=== PATIENT | male | born 1960 | race Caucasian/White ===

== ENCOUNTER → 2023-02-26 09:24 | Outpatient (BNVA) | payer OTHER, SELFPAY | PROVIDERS: Visit Provider Family Medicine Adult Medicine | DX: R10.9 Unspecified abdominal pain (principal); Z78.9 Other specified health status | CPT/HCPCS: 80053; 84443; 85025; G0103 ==

== ENCOUNTER 2023-04-23 06:01 | Outpatient (CLI) | payer OTHER, SELFPAY ==
--- NOTE | 2023-04-23 06:30 | US_ITS ---
WS: [id number] RIGHT UPPER QUADRANT ULTRASOUND HISTORY: gallbadder attack after eating COMPARISON: None available. Liver: 16.3 cm in length. Normal size liver and echogenicity. No bile duct dilatation or mass. Portal Vein: Normal hepatopetal flow with monophasic waveform. Gallbladder: Normally distended gallbladder. Several moderate-sized stones are present within the lum en of the gallbladder. Diameter of the largest stones approximately 2.0 cm. No pericholecystic fluid. No gallbladder wall thickening or edema. CBD: 0.3 cm Pancreas: Normal size and echogenicity. Right kidney: 11.2 cm in length. Normal size and echogenicity. No hydronephrosis or mass. Aorta and IVC: Unremarkable abdominal aorta and IVC. No ascites. IMPRESSION: 1. Cholelithiasis without evidence for acute cholecystitis. 2. No bile duct dilatation.
== END 2023-04-23 06:02 | disposition home or self-care (01) ==
LOC: RAD 06:03
PROVIDERS: PCP Family Medicine Adult Medicine; Visit Provider Family Medicine Adult Medicine
DX: K80.20 Calculus of gallbladder without cholecystitis without obstruction (principal); R10.9 Unspecified abdominal pain
CPT/HCPCS: 76705

== ENCOUNTER 2023-05-20 09:19 | Day surgery (SDC) | payer OTHER, SELFPAY ==
[2023-05-20 09:39] VITALS: BP 141/79; PULSE 74; RESP 18; TEMP 36.3; BMI 28.7
[2023-05-20] MEDS: sodium chloride 0.9% 1,000 ML 30 ML IV (09:52)
--- NOTE | 2023-05-20 10:41 | ANES.PREANE2 ---
Pre-Anesthetic Assessment Height/Weight: Height 1.78 m Weight 90.718 kg Temp Pulse Resp BP O2 Del Method 97.4 F 74 18 141/79 Room Air 05/20/23 09:39 05/20/23 09:39 05/20/23 09:39 05/20/23 09:39 05/20/23 09:39 Preop Diagnosis: GERD/ abdominal pain Operation Date: 05/20/23 10:30 Proposed Procedures p 06157 EGD(Not Applicable) [place] [address] Colonoscopy,G0121 screen colon A risk(Not Applicable) - Anthony Warner DO Familial anesthetic complications: None Was Beta Allegra taken within 24 hours: N/A Was Clonidine taken within 24 hours: N/A Last intake: Intake Last Liquid Date 05/19/23 Last Liquid Time 21:00 Last Solid Date 05/17/23 Last Solid Time 17:00 Social Alcohol (Social) and Tobacco (Marijuana, 1 gram every 6 days) Exam alert, oriented x 3, clear to auscultation bilaterally and regular rate & rhythm Airway Submandibular: within normal limits Cervical ROM: within normal limits Mallampati: Class II Dentition: full History/ROS No significant history except as noted and No significant complaints Pulmonary None reported CV/HEM Arrythmia (30 years ago, nothing since) Heart cath, no interventions Acute glomerular nephritits at age 4, nothing since Hepatic None reported GI Gastroesophageal Reflux Disease Metabolic None reported Musc/skel Lower Back Pain and Osteoarthritis/DJD Neuropsych None reported Anesthetic Plan ASA status: 2 Anesthesia: Anesthesia Evaluation, General and MAC Risk of > 500 ml blood loss (7ml/kg in children): No Medications/Allergies Home Medications Medication Instructions Recorded Confirmed Last Taken Type pantoprazole 40 mg tablet,delayed 40 mg PO BID 6 weeks #84 tabs 04/22/23 05/18/23 05/19/23 08:00 Rx release (Protonix) Allergies Allergy/AdvReac Type Severity Reaction Status Date / Time No Known Allergies Allergy Unverified 05/19/23 08:41 Current Medications Generic Name Dose Route Start Last Admin Trade Name Freq PRN Reason Stop Dose Admin Sodium Chloride 1,000 mls @ 30 mls/hr 05/20/23 09:30 05/20/23 09:52 Sodium Chloride 0.9% IV 05/21/23 09:29 30 mls/hr .Q24H JENNIFER Administration PFSH Anesthesia Medical History Abdominal pain Diverticulosis Gallbladder attack Hemorrhoids without complication High prostate specific antigen (PSA) Participant in health and wellness plan Surgical History H/O colonoscopy History of tonsillectomy Family History Father Diabetes Mother Low thyroid stimulating hormone (TSH) level Social History Smoking and tobacco/nicotine status: never used tobacco/nicotine Passive smoking exposure: No Second hand smoke exposure: No Alcohol intake: current Alcohol intake frequency: few times a month Alcohol type: beer and hard liquor Substance/Drug Use: current Substance/Drug use frequency: few times a month Data Anesthesia Cardiac Studies: No Data to Display
--- NOTE | 2023-05-20 13:27 | W.PM.OPSUD ---
Surgery/Procedure H&P Update DATE OF PROCEDURE: May 20, 2023 DATE H&P PERFORMED: 04/22/23 H&P UPDATE INFORMATION: I have reviewed H&P completed within last 30 days, I have examined patient prior to procedure and No changes to prior documentation PREOP DIAGNOSIS: GERD/ abdominal pain PLANNED PROCEDURE: Operation Date: 05/20/23 10:30 Proposed Procedures p 58048 EGD(Not Applicable) - [place] s [address] Colonoscopy,G0121 screen colon A risk(Not Applicable) - Anthony Warner DO
[2023-05-20 14:00] VITALS: BP 100/79; PULSE 80; RESP 18; TEMP 36.1; O2SAT 98
[2023-05-20 14:15] VITALS: BP 128/94; PULSE 78; RESP 18; O2SAT 96
[2023-05-20 14:30] VITALS: BP 104/67; PULSE 62; RESP 18; O2SAT 93
--- NOTE | 2023-05-20 17:49 | ANE.PACU2 ---
Inpatient post-anesthesia follow up: Airway intact: Yes Vital signs: Temperature 97.0 F Pulse Rate 62 Respiratory Rate 18 Blood Pressure 104/67 Pulse Oximetry 93 Oxygen Delivery Me thod Room Air Oxygen Flow Rate Fraction of Inspir ed Oxygen Hydration adequate: Yes Nausea and vomiting: No Pain level: 2 Mental status: Baseline
== END 2023-05-20 14:40 | disposition home or self-care (01) ==
PROVIDERS: PCP Family Medicine Adult Medicine; Visit Provider Surgery
PROC: 0DJ08ZZ Inspection of Upper Intestinal Tract, Via Natural or Artificial Opening Endoscopic (ICD-10-PCS; CPT 43235; principal; 2023-05-20 10:30)
PROC: 0DJD8ZZ Inspection of Lower Intestinal Tract, Via Natural or Artificial Opening Endoscopic (ICD-10-PCS; CPT 45378; 2023-05-20 10:30)
DX: K59.00 Constipation, unspecified (principal); R10.9 Unspecified abdominal pain; K21.9 Gastro-esophageal reflux disease without esophagitis; K29.50 Unspecified chronic gastritis without bleeding; K57.30 Diverticulosis of large intestine without perforation or abscess without bleeding; K64.8 Other hemorrhoids; K22.2 Esophageal obstruction
CPT/HCPCS: 43239; 45378; 76937; 88305; 88342; J2704; J7030

== ENCOUNTER → 2023-10-29 08:32 | Outpatient (BNVA) | payer OTHER, SELFPAY | PROVIDERS: PCP Family Medicine Adult Medicine; Visit Provider Family Medicine Adult Medicine | DX: R63.5 Abnormal weight gain | CPT/HCPCS: 80053; 84443; G0103 ==

== ENCOUNTER → 2024-05-03 08:49 | Outpatient (BNVA) | payer OTHER, SELFPAY | PROVIDERS: PCP Family Medicine Adult Medicine; Visit Provider Urology | DX: C67.9 Malignant neoplasm of bladder, unspecified (principal); R97.20 Elevated prostate specific antigen [PSA] | CPT/HCPCS: 84153; 84403 ==

== ENCOUNTER → 2024-08-01 13:47 | Outpatient (BNVA) | payer OTHER, SELFPAY | PROVIDERS: PCP Family Medicine Adult Medicine; Visit Provider Clinical Nurse Specialist Adult Health | DX: E66.01 Morbid (severe) obesity due to excess calories (principal); C67.9 Malignant neoplasm of bladder, unspecified; G47.00 Insomnia, unspecified; F41.1 Generalized anxiety disorder | CPT/HCPCS: 80053; 82040; 82670; 84153; 84270; 84403; 84443; 85025 ==

== ENCOUNTER → 2024-08-29 14:53 | Outpatient (BNVA) | payer OTHER, SELFPAY | PROVIDERS: PCP Clinical Nurse Specialist Adult Health; Visit Provider Urology | DX: C67.9 Malignant neoplasm of bladder, unspecified (principal) | CPT/HCPCS: 84153; 84403 ==

== ENCOUNTER 2025-01-13 07:36 | Emergency (ER) | payer OTHER, SELFPAY ==
--- OUTSIDE RECORDS SUMMARY | 2025-01-13 07:42 | XMS_ITS | Data Portability ---
Author Organization [facility] Mayo Hummel [facility], [facility] Address [address] [place] [address] Assessment No assessment recorded. Plan of Treatment Reminders Order Date Submit Date Provider Last Modified By Organization Details Last Modified Time Details Appointments None recorded. Lab None recorded. Referral None recorded. Procedures None recorded. Surgeries None recorded. Imaging electrocard iogram 2020 [facility], [address] [place] [address], [id number], 14:28:48 Medication Orders [facility]adine [facility] mg tablet [facility] [place], [address], 13:53:22 alprazolam 0.5 mg tablet [facility] [place], [address], 13:48:13 Patient TargetsNo targets recorded. Patient Instructions Encounter Date Encounter Id Patient Instructions Last Modified By Organization Details Last Modified Time 06/03/2021 [id number] EKG was normal Discussed findings at length with patient He requests something short term for anxiety and he has been very distressed by the recent pain in his chest Informed pt the pain is musculoskelatal and does not sound cardiac in nature. Instructed him to return next month for routine lab and follow up [email or web address] Not available 06/03/2021 13:52:45 Reason for Referral None Reported. Results Created Date Observation Date Name Description Value Unit Range Abnormal Flag Note LastModifiedBy Organization Detail LastModifiedTime 06/03/20 21 elect heather diogr am No observ ation record ed. [email or web address] [facility] [address] [place] [address], [phone], 06/03/2021 13:50:41 Result Notes None recorded. Problems Name Problem SNOMED Code Status Onset Date Resolution Date Notes Provider Name and Address Organization Details Recorded Time Heart murmur 56171904 [facility] 11:10:53 Problem Notes None recorded. Procedures Surgical History Date Name Laterality Status Provider Name and Address Organization Details Recorded Time Tonsillectomy completed [facility] 06/03/2021 11:13:40 Imaging Results None recorded. Procedure Notes None recorded. Medical Equipment None Reported. Allergies No known drug allergies Medications Name Sig Start Date Stop Date Status Note LastModified by Organization Details LastModified Time alprazolam 0.5 mg tablet Take 1 tablet 3 times a day by oral route as needed. active Not Available Not Available Not Avai lable loratadine 10 mg tablet Take 1 tablet every day by oral route. active Not Available Not Available Not Avai lable Vitals Date Recorded Body weight Heart rate Respiratory rate Body temperature Body mass index (BMI) Body height Oxygen saturation Oxygen saturation in Arterial blood by Pulse oximetry Systolic And Diastolic Provider Name and Address Organization Details Last Updated DateTime 1 76578.4 g 84 /min 18 /min 98 [degF] 30.1 kg/m2 177.8 cm 98 % 98 % 138/80 mm[Hg] [facility] 11:07:28 Social History Question Answer Notes LastModified by Organizat ion Details LastModified Time Tobacco Smoking Status Never [facility]oker [facility] 06/03/2021 11:13:29 What Is Your Level Of Caffeine Consumption? Occasional [email or web address] Information not available 06/03/2021 Which Illicit Or Recreational Drugs Have You Used? Marijuana [email or web address] Information not available 06/03/2021 Sex: Unknown Functional Status Question Answer Note LastModified by Organizat ion Details LastModified Time Do you use any illicit or recreational drugs? Yes [email or web address] Information not available 06/03/2021 What is your level of alcohol consumption? Occasional [email or web address] Information not available 06/03/2021 Mental Status None recorded. Family History Relationship Description Onset Age of this Age Resolved Age Notes LastModified by Organization Details LastModified Time Brother Heart disease Not available 2020 11:11:12 Mother Heart disease [email or web address] Not available 2020 11:11:36 Father Diabetes mellitus [email or web address] Not available 2020 11:11:55 Medical History No medical history recorded. Past Encounters Encounter ID Performer Location Encounter Start Date Encounter Closed Date Diagnosis/Indication Diagnosis SNOMED-CT Code Diagnosis ICD10 Code Diagnosis Note [id number] Radha Funez APRN [address] [address] 06/03/2021 10:24:54 06/04/2021 10:08:40 Anxiety 04911517 F41.9 Chest wall pain 18099518 6 R07.89 Muscle pain 87024203 M79 .10 Allergic rhinitis 330939 04 J30.9 Health Concerns Section Related Observation LastModified by Organization Detai ls LastModified Time None Recorded Concern Status LastModified by Organization Details LastModified Time None Recorded Advance Directives Directive None Recorded Payers Insurance Date Sequence Insurance Name Policy Number Policy Mendoza Covered Member ID Mendoza Member ID Guarantor Name 06/03/2021 SLIDING FEE SCHEDULE - DISCOUNT Alexis Arboleda 06/03/2021 1 [employer] [place] - ESSENTIAL [employer]ARE 2 (PPO) Alexis Arboleda [id number] Alexis Arboleda Notes Date Note Type Note Provider Name and Address Organization Details Recorded Time 06/03/2021 text/html Pt presents as a new pt to the clinic He moved here from [place] 2 years ago but has not seen any physicians as he has not needed anything acute. He states he has always been very healthy His last lab work up was 2 years ago in [place]. He states most recently he has been having some discomfort in his chest He has been out chopping wood and doing yard work and noticed the discomfort after hagan He is very anxious that something is wrong with his heart. He has no cardiac history He states the pain is worse with movement and deep breath. He has also had a cough and congestion since working in the yard. He has not taken anything over the counter [address] [facility] 06/03/2021 13:53:27
--- OUTSIDE RECORDS SUMMARY | 2025-01-13 07:43 | XMS_ITS | Patient Health Record ---
Author Organization [facility] Address [address] [place] [address] Care Team Providers Care Paper Cleaner Name Role Phone Ibrahima Reyes MD Primary Care Provider Unavailab SHANA Pereyra Unavailable [phone] Dante Ahumada Unavailable [phone] Allergies No Known Allergies Results Component Value Reference Range Notes Urinalysis, Routine Reviewed date:05/10/2024 10:51:46 AM Interpretation: Performing Lab: Notes/Report: Urine-Color yellow Appearance clear Glucose - Bilirubin - Ketones - Specific [place] 1.015 Occult Blood - pH 6.0 Urine Protein - Urobilinogen,Semi-Qn - Nitrite, Urine - WBC Esterase - Urinalysis Gross Exam - Reason For Referral No Information Medications Medication SIG (Take, Route, Fr equency, Duration) Notes Start Date End Date Status Anastrozole 1 MG 1 tablet Orally Once a day for 30 days 07/29/2024 Active Orgovyx 120 MG 1 tablet Orally Once a day Active Omeprazole 10 MG 1 capsule 30 minutes before morning meal Orally Once a day Active Advil 200 MG 1 tablet with food o r milk as needed Orally Three times a day PRN Active Orgovyx 120 MG 1 tablet Orally Once a day for 30 days 07/25/2024 07/20/2025 Active Orgovyx 120 MG 1 tablet Orally Once a day for 30 days 10/18/2024 10/13/2025 Active Wellbutrin Not-Takin g MiraLax 17 GM 1 packet mixed with 8 ounces of fluid Orally Once a day Not-T aking Social History Tobacco Use: Social History Observation Description Date Details (start date - stop date) Former Smoker NA - NA Tobacco Use/Smoking Question Answer Notes Tobacco use: former smoker How long has it been since you last smoked? > 10 years Problems Problem Type SNOMED Code ICD Code Onset Dates Problem Status W/U Status Risk Notes Problem Antineoplastic chemotherapy regimen (682172163) Encounter for antineoplastic chemotherapy (Z51.11) Active confirmed Problem Raised prostate specific antigen (684706066) Rising PSA following treatment for malignant neoplasm of prostate (R97.21) Active confirmed Problem Benign prostatic hyperplasia (751110881) BPH (benign prostatic hyperplasia) (N40.0) Active confirmed Problem History of malignant neoplasm of prostate (516737286) History of prostate cancer (Z85.46) Active confirmed Problem MRI Scan Abnormal (691523712) Abnormal MRI (R93.89) Active confirmed Problem History of prostatectomy (Z90.79) Active confirmed Problem Gallstones (827315719) Gallstones (K80.20) Active confirmed Problem Elevated PSA (388406120) Elevated PSA (R97.20) Active confirmed Problem Hematuria (36856274) Hematuria (R31.9) Active confirmed Problem Hot flashes (444776377) Hot flashes (R23.2) Active confirmed Problem Lesion of liver (699894982) Liver lesion (K76.9) Active confirmed Problem Malignant tumor of prostate (708520358) Prostate cancer (C61) Active confirmed Problem History of gastrointestinal disease (267810389) History of Crohn's disease (Z87.19) Active confirmed Vital Signs Heart Rate 75 /min 05/10/2024 Temperature 98.1 degrees Fahrenheit 05/10/2024 Height-cm 177.8 cm 05/10/2024 Blood pressure diastolic 77 mm Hg 05/10/2024 Weight-kg 97.52 kg 05/10/2024 Height 70 in 05/10/2024 Blood pressure systolic 132 mm Hg 05/10/2024 Weight 215 lbs 05/10/2024 BMI 30.85 kg/m2 05/10/2024 Encounters Encounter Location Date Provider Diagnosis [facility], [facility] [address] [place] [address] 05/10/2024 Dante Ahumada Prostate cancer C61 ; BPH (benign prostatic hyperplasia) N40.0 and Hot flashes R23.2 [facility], [facility] [address] [place] [address] 09/08/2024 [facility] Prostate cancer C61 ; BPH (benign prostatic hyperplasia) N40.0 and Hot flashes R23.2 [facility] [address] [facility] [place] [address] 02/26/2024 [facility] Prostate cancer C61 [facility] [address] [facility] [place] [address] 03/10/2024 [facility] [address] [facility] [place] [address] 03/10/2024 [facility] [address] [facility] [place] [address] 03/21/2024 [facility] [address] [facility] [place] [address] 07/14/2024 [facility] [address] [facility] [place] [address] 07/25/2024 [facility] Prostate cancer C61 [facility] [address] [facility] [place] [address] 07/28/2024 [facility] Androgen deprivation therapy Z79.818 ; Other fatigue R53.83 ; Hot flash in male R23.2 ; Prostate cancer C61 and Liver lesion K76.9 [facility] [address] [facility] [place] [address] 10/06/2024 [facility] [address] [facility] [place] [address] 10/18/2024 [facility] Prostate cancer C61 [facility] [address] [facility] [place] [address] 11/07/2024 [facility] [address] [facility] [place] [address] 12/01/2024 [facility] [address] [facility] [place] [address] 12/28/2024 SHANA DICKENS Prostate cancer C61 Assessments Encounter Date Diagnosis (ICD Code) Assessment Notes Treatment Notes Treatment Clinical Notes Section Notes 12/28/2024 Prostate cancer (ICD-10 - C61) 07/28/2024 Androgen deprivation therapy (ICD-10 - Z79.818) 07/25/2024 Prostate cancer (ICD-10 - C61) 10/18/2024 Prostate cancer (ICD-10 - C61) 09/08/2024 Prostate cancer (ICD-10 - C61) 64-yo male with high risk prostate cancer, BPH and hot flashes. He had 14/14 cores positive for [place] 4+3=7 prostate cancer T2a. He completed EBRT in Aug 2023. On Orgovyx 120mg daily. TT of <2.5 and PSA of <0.014 on 08/29/24. Labs are stable. Will continue surveillance at this time. He will return in 6m with PSA and TT. Return sooner with any concerns. Plan: - Continue Orgovyx 120mg daily - recommend taking calcium/vit D supplements - RTC in 6 months with repeat PSA and TT - RTC or call sooner with any concerns IChloe, Madan, am scribing for, and in the presence of, Dr. Dickens. I, Dr. Shana Dickens, personally performed the services prescribed in this documentation, as scribed by Chloe Griffin, in my presence, and it is both accurate and complete. 02/26/2024 Prostate cancer (ICD-10 - C61) 05/10/2024 Prostate cancer (ICD-10 - C61) 63-yo male with high risk prostate cancer, BPH and hot flashes. He had 14/14 cores positive for [place] 4+3=7 prostate cancer T2a. He completed EBRT in Aug 2023. He is on ADT. PSA is stable at 0.015. I also recommended continuing with hormone therapy for 2 years given his high risk prostate cancer. However, patient mentions that he would like to speak to Dr. Dickens about holding ADT a year out from radiation due to continued fatigue. For now, he will continue with Orgovyx and explained this, including possible side effects. After discussion, he elects to continue Orgovyx. I again advised him to take a calcium/vit D supplements and to stay active for bone health. He denies any urinary complaints. RTC in 4-6 months with PSA and TT. RTC or call sooner with any concerns. The patient voices understanding and agrees with the plan. All of his questions were answered to his satisfaction. Plan: - Continue Orgovyx 120mg daily - recommend taking calcium/vit D supplement - RTC in 4-6 months with repeat PSA and TT - RTC or call sooner with any concerns 05/10/2024 BPH (benign prostatic hyperplasia) (ICD-10 - N40.0) 63-yo male with high risk prostate cancer, BPH and hot flashes. He had 14/14 cores positive for [place] 4+3=7 prostate cancer T2a. He completed EBRT in Aug 2023. He is on ADT. PSA is stable at 0.015. I also recommended continuing with hormone therapy for 2 years given his high risk prostate cancer. However, patient mentions that he would like to speak to Dr. Dickens about holding ADT a year out from radiation due to continued fatigue. For now, he will continue with Orgovyx and explained this, including possible side effects. After discussion, he elects to continue Orgovyx. I again advised him to take a calcium/vit D supplements and to stay active for bone health. He denies any urinary complaints. RTC in 4-6 months with PSA and TT. RTC or call sooner with any concerns. The patient voices understanding and agrees with the plan. All of his questions were answered to his satisfaction. Plan: - Continue Orgovyx 120mg daily - recommend taking calcium/vit D supplement - RTC in 4-6 months with repeat PSA and TT - RTC or call sooner with any concerns 09/08/2024 BPH (benign prostatic hyperplasia) (ICD-10 - N40.0) 64-yo male with high risk prostate cancer, BPH and hot flashes. He had 14/14 cores positive for [place] 4+3=7 prostate cancer T2a. He completed EBRT in Aug 2023. On Orgovyx 120mg daily. TT of <2.5 and PSA of <0.014 on 08/29/24. Labs are stable. Will continue surveillance at this time. He will return in 6m with PSA and TT. Return sooner with any concerns. Plan: - Continue Orgovyx 120mg daily - recommend taking calcium/vit D supplements - RTC in 6 months with repeat PSA and TT - RTC or call sooner with any concerns Chloe Garrett Scribe, am scribing for, and in the presence of, Dr. Dickens. I, Dr. Shana Dickens, personally performed the services prescribed in this documentation, as scribed by Chloe Griffin, in my presence, and it is both accurate and complete. 07/28/2024 Other fatigue (ICD-10 - R53.83) 07/28/2024 Hot flash in male (ICD-10 - R23.2) 09/08/2024 Hot flashes (ICD-10 - R23.2) 64-yo male with high risk prostate cancer, BPH and hot flashes. He had 14/14 cores positive for [place] 4+3=7 prostate cancer T2a. He completed EBRT in Aug 2023. On Orgovyx 120mg daily. TT of <2.5 and PSA of <0.014 on 08/29/24. Labs are stable. Will continue surveillance at this time. He will return in 6m with PSA and TT. Return sooner with any concerns. Plan: - Continue Orgovyx 120mg daily - recommend taking calcium/vit D supplements - RTC in 6 months with repeat PSA and TT - RTC or call sooner with any concerns IChloe, Doryse, am scribing for, and in the presence of, Dr. Dickens. I, Dr. Shana Dickens, personally performed the services prescribed in this documentation, as scribed by Chloe Griffin, in my presence, and it is both accurate and complete. 05/10/2024 Hot flashes (ICD-10 - R23.2) 63-yo male with high risk prostate cancer, BPH and hot flashes. He had 14/14 cores positive for [place] 4+3=7 prostate cancer T2a. He completed EBRT in Aug 2023. He is on ADT. PSA is stable at 0.015. I also recommended continuing with hormone therapy for 2 years given his high risk prostate cancer. However, patient mentions that he would like to speak to Dr. Dicekns about holding ADT a year out from radiation due to continued fatigue. For now, he will continue with Orgovyx and explained this, including possible side effects. After discussion, he elects to continue Orgovyx. I again advised him to take a calcium/vit D supplements and to stay active for bone health. He denies any urinary complaints. RTC in 4-6 months with PSA and TT. RTC or call sooner with any concerns. The patient voices understanding and agrees with the plan. All of his questions were answered to his satisfaction. Plan: - Continue Orgovyx 120mg daily - recommend taking calcium/vit D supplement - RTC in 4-6 months with repeat PSA and TT - RTC or call sooner with any concerns 07/28/2024 Prostate cancer (ICD-10 - C61) 07/28/2024 Liver lesion (ICD-10 - K76.9) Plan Of Treatment Pending Test Test Name Order Date CT Scan : Pelvis w/o IV Contrast [id number] 1 09/03/2022 CT Abd & Pelvis W & WO IV contrast [id number] 05/11/2023 BUN, Creatinine 05/11/2023 CT Chest W W/O Contrast [id number] 05/11/2023 MRI : Pelvis with and without Contrast 7 219603/11/2023 NUCLEAR MED : Bone Scan, Total body 7830 6 05/11/2023 COMPREHENSIVE METABOLIC PANEL (38126) CBC (H/H, RBC, INDICES, WBC, PLT) (1759) 07/28/2024 ESTRADIOL (4021) 07/28/2024 PSA, TOTAL (5363) 08/25/2023 Testosterone Total 05/10/2024 Testosterone Total 12/28/2024 Testosterone Total 02/26/2024 PSA-Diagnostic 02/26/2024 PSA-Diagnostic 12/28/2024 PSA-Diagnostic 05/10/2024 Next Appt Details Provider Name:SHANA Luke MACAgnieszka Megan, 03/09/2025 09:55:00 AM, [address] [place], [address], Insurance Providers Payer Name Payer Address Payer Phone Subscriber Number Group Number Insured Name Patient Relationship to Insured Coverage Start Date Coverage End Date Luzma [place] [address] [place] [address] [id number] ALLA BALDWIN Spouse - patient is the spouse of the insured Medications Administered Medication Instructions Date of Administration Dosage Notes Dylan 07/29/2023 22.5 mg [facility]#[id number] Medical (General) History Medical History History ICD Code Elevated PSA Arthritis Migraine headaches Surgical History Surgery Date(Month/Year) tonsillectomy Acute globular nephritis (4 as a child) space oar
[2025-01-13 07:45] VITALS: BP 129/85; PULSE 87; RESP 17; TEMP 36.4; O2SAT 96; BMI 30.8
[2025-01-13] MEDS: diphenhydrAMINE 50 mg/mL SDV 1mL IVP (08:08)
--- NOTE | 2025-01-13 08:13 | W.ED.SKABFB ---
HPI - Skin/Abscess/Foreign Bdy General: Chief complaint: Skin/Abscess/Foreign Body Stated complaint: Poison [place] Time Seen by Provider: 01/13/25 07:47 History of Present Illness: 64-year-old male was using a weed eater yesterday he believes he got into some poison eden in the evening began to have a rash markedly worsened overnight. He been outside quite a bit and now he has the rash on his forearms his legs and somewhat on his face particularly his eyes. He has not affected his vision. He has used some [id number] topical medications with minimal improvement. Associated symptoms: Deny chills or fever(s) Related Data Home Medications ?Medication ?Instructions ?Recorded ?Confirmed Bacillus coagulans 800 million cell PO 10/29/23 02/25/24 cell tablet chanca larry PO 10/29/23 02/25/24 relugolix 120 mg tablet (Orgovyx) 120 mg PO DAILY 01/22/24 02/25/24 anastrozole 1 mg tablet 1 mg PO DAILY 08/01/24 08/01/24 Previous Rx's ?Medication ?Instructions ?Recorded [id number]-[id number] 3.5 2 drp ophthalmic (eye) QID 7 days 02/25/24 mg/mL-10,000 unit/mL-0.1% eye #5 mL drops (Maxitrol) omeprazole 20 mg capsule,delayed 20 mg PO DAILY #90 caps 08/01/24 release trazodone 50 mg tablet 50 mg PO .qhs #90 tabs 08/01/24 hydroxyzine HCl 25 mg tablet 25 mg PO Q6H PRN itching #20 tabs 01/13/25 prednisone 20 mg tablet 20 mg PO TID #15 tabs 01/13/25 triamcinolone acetonide 0.5 % 1 applic topical BID #15 grams 01/13/25 topical ointment Allergies Allergy/AdvReac Type Severity Reaction Status Date / Time No Known Allergies Allergy Verified 08/01/24 12:57 Review of Systems Const: Denies: fever(s) or chills Card: Denies: chest pain Resp: Denies: dyspnea GI: Denies: abdominal pain : Denies: dysuria, urinary frequency or urinary urgency Musc: Denies: neck pain or back pain Skin/Breast: Reports: rash and pruritus PFSH ED PFSH: Medical History Insomnia Morbid obesity Generalized anxiety disorder Hemorrhoids without complication Weight gain Invasion of prostate, uterus, 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) Schatzki's ring Cardio gastric region of stomach Diverticulosis Surgical History History of prostate surgery X2 H/O colonoscopy History of tonsillectomy Family History Father Diabetes Mother Low thyroid stimulating hormone (TSH) level Social History Smoking and tobacco/nicotine status: former use of tobacco/nicotine Quit status (tobacco/nicotine): has quit using Year quit tobacco: 24 years ago Former quit date comment: smoked 7 years Second hand smoke exposure: No Alcohol intake: current Alcohol intake frequency: few times a month Alcohol type: beer and hard liquor Substance/Drug Use: current Substance/Drug use frequency: few times a month Other substance/drug use details: 1 gram lasts 2 weeks Household members: spouse and children Number of children: 1 Education level details: 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, 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 Physical Exam Const: COMMON NORMALS: no acute distress GENERAL APPEARANCE: cooperative and comfortable ORIENTATION/CONSCIOUSNESS: Yes awake, Yes oriented to person, Yes oriented to place and Yes oriented to time HENMT: COMMON NORMALS: normocephalic, atraumatic and hearing grossly normal bilaterally HEAD & SCALP: normocephalic and atraumatic Resp: COMMON NORMALS: normal respiratory effort, No retractions, No use of accessory muscles and clear to auscultation bilaterally AUSCULTATION: clear to auscultation bilaterally Cardio: COMMON NORMALS: regular rate, regular rhythm and No murmurs present (Cardio) RATE: regular rate RHYTHM: regular rhythm GI: COMMON NORMALS: Soft to palpation and No hepatosplenomegaly present AUSCULTATION: Yes normoactive bowel sounds PALPATION: Yes Soft to palpation, No Tenderness to palpation present (GI), No Guarding due to palpation present (GI) and Yes No hepatosplenomegaly present Extremity: COMMON NORMALS: normal to inspection, capillary refill normal, no clubbing, cyanosis or edema, no calf tenderness and no pedal edema Neuro: SENSORIUM/ORIENTATION: Yes oriented to person, Yes oriented to place and Yes oriented to time Skin: OTHER: Extensive erythematous rash slightly raised pruritic with some swelling about the face is also on the forearms and lower extremities. Course Vital Signs: Vital signs: Vital Signs Temperature 97.6 F 01/13/25 07:45 Pulse Rate 83 01/13/25 08:21 Respiratory Rate 17 01/13/25 07:45 Blood Pressure 128/72 01/13/25 08:21 Pulse Oximetry 99 01/13/25 08:21 Oxygen Delivery Me thod Room Air 01/13/25 07:45 MDM - Skin/Abscess/Foreign Bdy Medicial Decision Making He was exposed while using a weed eater suspect between contact of the stools and clothing as well as splatter from using the weedeater he had extensive exposure to the poison eden oils. Start patient on antihistamine and steroid [id number] with his primary care doctor. Medical Records I reviewed the patient's medical records. Lab Data I reviewed the patient's lab results. No radiology studies performed this visit Discharge Plan Discharge Patient Disposition: Home Clinical Impression: Rhus dermatitis Condition: Stable Prescriptions: New prednisone 20 mg tablet 20 mg PO TID Qty: 15 0RF Rx Instructions: 1 p.o. 3 times daily x3 days, 1 p.o. twice daily x2 days, 1 p.o. daily x2 days hydroxyzine HCl 25 mg tablet 25 mg PO Q6H PRN (Reason: itching) Qty: 20 0RF triamcinolone acetonide 0.5 % ointment 1 applic topical BID Qty: 15 2RF No Action neomycin-polymyxin B-dexameth [Maxitrol] 3.5mg/mL-10,000 unit/mL-0.1 % drops,suspension 2 drp ophthalmic (eye) QID 7 Days Qty: 5 0RF Rx Instructions: Route-Ears to treat Otits Externa anastrozole 1 mg tablet 1 mg PO DAILY trazodone 50 mg tablet 50 mg PO .qhs Qty: 90 1RF omeprazole 20 mg capsule,delayed release(DR/EC) 20 mg PO DAILY Qty: 90 3RF Bacillus coagulans 800 million cell tablet PO chanca larry tablet PO Orgovyx 120 mg tablet 120 mg PO DAILY Discharge Orders: Discharge ED (Routine); Ordered 01/13/25 Ordered By: Manny Salgado Referrals: Stephen Mei NP [Primary Care Provider, Family Practice] Discharge Diet: Usual diet Discharge Activity: Resume usual activity Patient Instructions: Poison [place] (ED), Cold Compress or Soak (ED), Opioid Safety, Pain Management, Patient Portal & Beatrice Instructions Activity Restrictions/Additional Instructions: Thank you for choosing [facility] for your healthcare needs today. It is very important that you follow up as instructed or that you return to the Emergency Department should you have concerns or if your condition changes or worsens in any way. You are seen in the emergency room after exposure to plant oil (likely poison eden). Treatment for this is topical. Be sure to wash all the clothing and tools that you are using reexposure to oil will cause recurrence of the rash. You were given a shot of steroid in the emergency room you can start with the oral steroid this evening. You are also given oral antihistamines. The oral antihistamine is likely to make you drowsy. You should avoid driving or using heavy machinery after taking it. You are also given a topical steroid ointment which you can place on areas for relief of itching. Avoid areas such as the genitals or face with this ointment. You can use [id number] medications for poison eden exposure as well such as calamine lotion. Print Language: British Coding Level of Care Code ED Animal Services Officer for Leobardo Barakat
[2025-01-13 08:21] VITALS: BP 128/72; PULSE 83; O2SAT 99
== END 2025-01-13 08:26 | disposition home or self-care (01) ==
PROVIDERS: Emergency Provider Family Medicine; PCP Clinical Nurse Specialist Adult Health
DX: L23.7 Allergic contact dermatitis due to plants, except food (principal); Z87.891 Personal history of nicotine dependence
CPT/HCPCS: 96372; 96374; 99284; J1100; J1200

== ENCOUNTER → 2025-03-01 08:17 | Outpatient (BNVA) | payer OTHER, SELFPAY | PROVIDERS: PCP Clinical Nurse Specialist Adult Health; Visit Provider Clinical Nurse Specialist Adult Health | DX: C61 Malignant neoplasm of prostate (principal) | CPT/HCPCS: 84153; 84403 ==